=== PATIENT | female | born 1980 | race Caucasian/White ===

== ENCOUNTER 2023-06-27 14:15 | Inpatient (IN) | payer MEDICAID ==
[~2023-06-27] VITALS: Ht 160 cm; Wt 80.7 kg
[2023-06-27 14:28] VITALS: BP 158/60; PULSE 60; RESP 16; TEMP 98; O2SAT 98
[2023-06-27 15:30] VITALS: O2SAT 100
[2023-06-27 16:12] LABS: BASOPHILS % (AUTO) 0.7 % (0.0-2.0); EOSINOPHILS # (AUTO) 0.1 K/uL (0-0.4); EOSINOPHILS % (AUTO) 1.8 % (0.0-4.0); HEMATOCRIT 37.2 % (36-48); HEMOGLOBIN 11.9 g/dL (12.0-16.0); LYMPHOCYTES # (AUTO) 1.8 K/uL (2.5-16.5); LYMPHOCYTES % (AUTO) 26.3 % (20.5-51.1); MEAN CORPUSCULAR HEMOGLOBIN 25 pg (27-31); MEAN CORPUSCULAR HGB CONC 32 g/dL (33-37); MONOCYTES # (AUTO) 0.5 K/uL (0.8-1.0); MONOCYTES % (AUTO) 7.3 % (1.7-9.3); NEUTROPHILS # (AUTO) 4.5 K/uL (1.8-7.7); NEUTROPHILS % (AUTO) 63.9 % (42.2-75.2); PLATELET COUNT (AUTO) 303 K/uL (140-450); RED CELL DISTRIBUTION WIDTH 23.6 % (11.6-13.7)
[2023-06-27 16:34] LABS: ALBUMIN 3.6 g/dL (3.4-5.0); ANION GAP 11.2 (8-16); CALCIUM 9.4 mg/dL (8.5-10.1); CREATININE 0.7 mg/dL (0.6-1.3); POTASSIUM 4.2 mmol/L (3.5-5.1); TOTAL BILIRUBIN 0.2 mg/dL (0.0-1.0); TOTAL PROTEIN, SERUM 7.4 g/dL (6.4-8.2)
[2023-06-27 16:35] LABS: INR 1.02 (0.8-1.2); PARTIAL THROMBOPLASTIN TIME 25.1 secs (22-35.6); PROTHROMBIN TIME 10.7 secs (10.8-13.4)
[2023-06-27] MEDS ORDERED: ACETAMINOPHEN EXTRA STRENGTH 500 MG TAB PO ONE (16:40)
[2023-06-27 16:45] LABS: MAGNESIUM 2.1 mg/dL (1.8-2.4); PHOSPHORUS 3.4 mg/dL (2.5-4.9)
[2023-06-27] MEDS ORDERED: ASPIRIN 81 MG TAB.CHEW PO ONE (17:00)
[2023-06-27 17:50] VITALS: O2SAT 100
[2023-06-27 18:18] LABS: D-DIMER < 100 ng/ml (0-400)
[2023-06-27] MEDS ORDERED: ACETAMINOPHEN 325 MG TAB PO PRN (18:25)
[2023-06-27] MEDS ORDERED: DOCUSATE SODIUM 100 MG GELCAP PO PRN (18:25)
[2023-06-27] MEDS ORDERED: MORPHINE SULFATE 2 MG/ML SYR IVP PRN (18:25)
[2023-06-27] MEDS ORDERED: LORazepam 2 MG/ML VIAL IVP PRN (18:25)
[2023-06-27] MEDS ORDERED: ONDANSETRON 4 MG/2 ML VIAL IVP PRN (18:25)
[2023-06-27] MEDS ORDERED: ZOLPIDEM 10 MG TAB PO PRN (18:25)
[2023-06-27] MEDS ORDERED: POTASSIUM CHLORIDE 10 MEQ TABER PO PRN (18:25)
[2023-06-27 20:40] VITALS: PULSE 52; RESP 18; O2SAT 100
[2023-06-28] VITALS (7 sets, daily range): BP systolic 106–121; BP diastolic 65–76; PULSE 44–63; RESP 18; TEMP 96.7–98.5; O2SAT 82–100
[2023-06-28 06:28] LABS: CALCIUM 9.1 mg/dL (8.5-10.1); CARBON DIOXIDE 29.2 mmol/L (21-32); CREATININE 0.8 mg/dL (0.6-1.3); POTASSIUM 4.2 mmol/L (3.5-5.1)
[2023-06-28 06:40] LABS: BASOPHILS % (AUTO) 0.4 % (0.0-2.0); EOSINOPHILS # (AUTO) 0.2 K/uL (0-0.4); EOSINOPHILS % (AUTO) 2.5 % (0.0-4.0); HEMATOCRIT 36.2 % (36-48); HEMOGLOBIN 11.6 g/dL (12.0-16.0); LYMPHOCYTES % (AUTO) 27.2 % (20.5-51.1); MEAN CORPUSCULAR HEMOGLOBIN 25 pg (27-31); MEAN CORPUSCULAR HGB CONC 32 g/dL (33-37); MEAN CORPUSCULAR VOLUME 79.3 fL (80-94); MONOCYTES # (AUTO) 0.7 K/uL (0.8-1.0); MONOCYTES % (AUTO) 9.1 % (1.7-9.3); NEUTROPHILS # (AUTO) 4.4 K/uL (1.8-7.7); NEUTROPHILS % (AUTO) 60.8 % (42.2-75.2); PLATELET COUNT (AUTO) 280 K/uL (140-450); RED BLOOD CELL COUNT(AUTO) 4.56 MIL/uL (4.20-5.40); RED CELL DISTRIBUTION WIDTH 23.8 % (11.6-13.7); WHITE BLOOD COUNT (AUTO) 7.3 K/uL (4.8-10.8)
[2023-06-28] MEDS: ASPIRIN 81 MG TAB.CHEW PO SCH (09:06)
[2023-06-29] VITALS: BP 100/63; PULSE 48; RESP 18; TEMP 98.2; O2SAT 99
[2023-06-29 02:35] VITALS: PULSE 39
[2023-06-29 04:00] VITALS: BP 105/62; PULSE 45; RESP 18; TEMP 98.7; O2SAT 99
[2023-06-29 06:29] LABS: BASOPHILS % (AUTO) 0.7 % (0.0-2.0); EOSINOPHILS # (AUTO) 0.2 K/uL (0-0.4); EOSINOPHILS % (AUTO) 3.1 % (0.0-4.0); HEMATOCRIT 36.6 % (36-48); HEMOGLOBIN 11.8 g/dL (12.0-16.0); LYMPHOCYTES # (AUTO) 1.8 K/uL (2.5-16.5); LYMPHOCYTES % (AUTO) 27.5 % (20.5-51.1); MEAN CORPUSCULAR HEMOGLOBIN 26 pg (27-31); MEAN CORPUSCULAR HGB CONC 32 g/dL (33-37); MEAN CORPUSCULAR VOLUME 79.1 fL (80-94); MONOCYTES # (AUTO) 0.6 K/uL (0.8-1.0); MONOCYTES % (AUTO) 9.3 % (1.7-9.3); NEUTROPHILS # (AUTO) 3.8 K/uL (1.8-7.7); NEUTROPHILS % (AUTO) 59.4 % (42.2-75.2); PLATELET COUNT (AUTO) 276 K/uL (140-450); RED BLOOD CELL COUNT(AUTO) 4.63 MIL/uL (4.20-5.40); RED CELL DISTRIBUTION WIDTH 23.8 % (11.6-13.7); WHITE BLOOD COUNT (AUTO) 6.5 K/uL (4.8-10.8)
[2023-06-29 06:45] LABS: ANION GAP 10.4 (8-16); CALCIUM 8.8 mg/dL (8.5-10.1); CREATININE 0.8 mg/dL (0.6-1.3); POTASSIUM 4.4 mmol/L (3.5-5.1)
[2023-06-29 08:00] VITALS: BP 113/64; PULSE 48; PULSE 49; PULSE 51; PULSE 54; RESP 19; TEMP 97.6; O2SAT 98; O2SAT 99
[2023-06-29] MEDS: ASPIRIN 81 MG TAB.CHEW PO SCH (10:26)
[2023-06-29 10:36] VITALS: BP 113/64; PULSE 49; RESP 19; TEMP 97.6
== END 2023-06-29 13:10 | disposition home or self-care (01) | DRG 190 ==
LOC: MED 14:15 → MTU 18:24
PROVIDERS: ADMIT Family Medicine; ATTEND Family Medicine
DX: I21.4 Non-ST elevation (NSTEMI) myocardial infarction (principal); D50.9 Iron deficiency anemia, unspecified; R00.1 Bradycardia, unspecified; R55 Syncope and collapse
CPT/HCPCS: 36415; 71045; 80048; 80053; 83735; 83880; 84100; 84443; 84484; 84703; 85025; 85379; 85610; 85730; 87081; 93005; 99291; J2270

== ENCOUNTER 2023-09-30 00:05 | Emergency (ER) | payer MEDICAID ==
[~2023-09-30] VITALS: Ht 157.5 cm; Wt 77.1 kg
[2023-09-30 00:11] VITALS: BP 144/87; PULSE 59; RESP 16; TEMP 97.9; O2SAT 100
[2023-09-30 00:18] VITALS: O2SAT 100
[2023-09-30] MEDS ORDERED: KETOROLAC 60 MG/2 ML VIAL IM ONE (00:50)
[2023-09-30] MEDS ORDERED: IBUP-2213 PO (00:56)
[2023-09-30] MEDS ORDERED: ACET-503 PO (00:56)
[2023-09-30 01:44] VITALS: BP 133/70; PULSE 55; RESP 11; O2SAT 99
== END 2023-09-30 01:45 | disposition home or self-care (01) ==
LOC: MED 00:05
DX: R07.89 Other chest pain (principal); Z79.899 Other long term (current) drug therapy; Z79.1 Long term (current) use of non-steroidal anti-inflammatories (NSAID)
CPT/HCPCS: 71045; 93005; 96372; 99283; J1885; Q0092